=== PATIENT | female | born 2000 | race African-American/Black ===

== ENCOUNTER 2021-06-20 16:41 | Emergency (ER) | payer OTHER ==
[2021-06-20 16:50] VITALS: BMI 18.1
[2021-06-20] MEDS ORDERED: METOCLOPRAMIDE HCL INJECTION 10 MG/2 ML VIAL IVPUSH ONE (17:31)
[2021-06-20] MEDS ORDERED: SODIUM CHLORIDE 0.9% 500 ML INFUS.BAG IV ONE (17:31)
[2021-06-20] MEDS ORDERED: FAMOTIDINE 20 MG/50 ML IVPB 20 MG/50 ML MG IVPB ONE ×2 (17:43→18:04)
[2021-06-20] MEDS ORDERED: KETOROLAC TROMETHAMINE 30 MG/1 ML VIAL IVPUSH ONE (17:43)
[2021-06-20] MEDS ORDERED: METOCLOPRAMIDE HCL INJECTION 10 MG/2 ML VIAL ONE (18:04)
[2021-06-20 18:37] LABS: BASO % 0.4 % (0-2.0); EOS % 0.4 % (0-4.5); HEMATOCRIT 34.3 % (32.4-45.2); HEMOGLOBIN 11.2 GM/dL (10.7-15.3); LYMPH % 13.8 % (8-40); MCH 23.4 pg (25.7-33.7); MCHC 32.5 g/dl (32.0-36.0); MEAN CELL VOLUME 71.9 fl (80-96); MEAN PLT VOLUME 8.7 fl (7.5-11.1); MONO % 5.3 % (3.8-10.2); NEUT % 80.1 % (42.8-82.8); PLATELET COUNT 218 10^3/uL (134-434); RBC 4.78 M/mm3 (3.60-5.2); RDW 14.6 % (11.6-15.6); WHITE BLOOD COUNT 10.1 K/mm3 (4.0-10.0)
[2021-06-20] MEDS ORDERED: ONDANSETRON 4 MG/2 ML VIAL IVPUSH ONE ×2 (18:40→19:34)
[2021-06-20 18:48] LABS: CHLORIDE 104 mmol/L (98-107)
[2021-06-20 18:50] LABS: ALBUMIN 3.5 g/dl (3.4-5.0); BLOOD UREA NITROGEN 8.3 mg/dL (7-18); CALCIUM 8.2 mg/dL (8.5-10.1); CO2 25 mmol/L (21-32); GLUCOSE,RANDOM 111 mg/dL (74-106)
[2021-06-20 18:54] LABS: CREATININE 0.8 mg/dL (0.55-1.3)
[2021-06-20 18:55] LABS: TOT PROT 8.7 g/dl (6.4-8.2)
[2021-06-20 18:56] LABS: ALK PHOS 50 U/L (45-117)
[2021-06-20] MEDS ORDERED: ONDANSETRON 4 MG/2 ML VIAL ONE ×2 (19:17→19:37)
[2021-06-20 19:18] LABS: ANION GAP -11 MMOL/L (8-16); SODIUM 119 mmol/L (136-145)
[2021-06-20 19:21] LABS: BILIRUBIN,TOTAL > 0.1 mg/dL (0.2-1)
[2021-06-20] MEDS ORDERED: LORazepam 2 MG/ML SDV VIAL IVPUSH ONE (19:35)
[2021-06-20 20:30] LABS: CALCIUM 8.5 mg/dL (8.5-10.1)
[2021-06-20 20:31] LABS: BLOOD UREA NITROGEN 7.7 mg/dL (7-18)
[2021-06-20 20:34] LABS: CREATININE 0.7 mg/dL (0.55-1.3)
[2021-06-20 21:48] LABS: PH,URINE 7.5 (5.0-8.0); URINE APPEARANCE CLEAR; URINE BILIRUBIN NEGATIVE (NEGATIVE); URINE COLOR YELLOW; URINE GLUCOSE (UA) NEGATIVE (NEGATIVE); URINE KETONE TRACE (NEGATIVE); URINE LEUK ESTERASE NEGATIVE (NEGATIVE); URINE NITRITE NEGATIVE (NEGATIVE); URINE PROTEIN TRACE (NEGATIVE); URINE UROBILINOGEN 0.2 mg/dL (0.2-1.0)
[2021-06-20 22:20] VITALS: BP 108/73; PULSE 76; TEMP 99.1
[2021-06-20 23:31] LABS: EPI CELLS 20 /uL (0-25.1); HYALINE CASTS 6 /uL (0-3.1); URINE RBC 563 /uL (0-23.9); URINE WBC 10 /uL (0-25.8)
[2021-06-20 23:32] LABS: URINE BACTERIA 78 /uL (0-1359)
== END 2021-06-20 22:42 | disposition home or self-care (01) ==
LOC: JER 16:41
PROC: 3E033GC Introduction of Other Therapeutic Substance into Peripheral Vein, Percutaneous Approach (ICD-10-PCS; principal; 2021-06-20)
PROC: 3E033GC Introduction of Other Therapeutic Substance into Peripheral Vein, Percutaneous Approach (ICD-10-PCS; 2021-06-20)
PROC: 3E033NZ Introduction of Analgesics, Hypnotics, Sedatives into Peripheral Vein, Percutaneous Approach (ICD-10-PCS; 2021-06-20)
PROC: 3E033GC Introduction of Other Therapeutic Substance into Peripheral Vein, Percutaneous Approach (ICD-10-PCS; 2021-06-20)
PROC: 3E033GC Introduction of Other Therapeutic Substance into Peripheral Vein, Percutaneous Approach (ICD-10-PCS; 2021-06-20)
PROC: 3E033GC Introduction of Other Therapeutic Substance into Peripheral Vein, Percutaneous Approach (ICD-10-PCS; 2021-06-20)
DX: N94.6 Dysmenorrhea, unspecified (principal); R19.7 Diarrhea, unspecified
CPT/HCPCS: 36415; 80048; 80053; 81003; 84703; 85025; 99284-25